=== PATIENT | female | born 1965 | race Caucasian/White ===

== ENCOUNTER 2019-06-28 09:39 | Emergency (ER) | payer OTHER ==
[2019-06-28] MEDS ORDERED: Ibuprofen TAB* 800 MG PO ONE (12:01)
[2019-06-28 12:16] VITALS: BP 125/60
--- NOTE | 2019-06-28 12:21 | ED ---
Upper Extremity Pain - HPI Summary HPI Summary: Patient is a 54 y/o F presenting to [facility] with complaints of right hand and right knee pain secondary to slipping and falling in [facility] parking [place]. The patient is an employee at [employer] [facility] [employer]. She notes Hx of two tendons tearing at her right hand. Left knee surgery is also reported. Patient endorses tobacco and alcohol usage but denies substance usage. No FMHx noted. NKDA reported. Home medications and allergies are reviewed. - History of Current Complaint Chief Complaint: EDExtremityLower Stated Complaint: FALL ARM INJURY Time Seen by Provider: 06/28/19 10:26 Hx Obtained From: Patient Mechanism Of Injury: Fall From A Standing Position Onset/Duration: Still Present Timing: Constant Pain Location: Hand - right Associated Signs & Symptoms: Positive: Other - right knee pain - Allergies/Home Medications Allergies/Adverse Reactions: Allergies Allergy/AdvReac Type Severity Reaction Status Date / Time No Known Allergies Allergy Verified 06/28/19 09:41 PMH/Surg Hx/FS Hx/Imm Hx Musculoskeletal History: Reports: Other Musculoskeletal History - tearing of right hand tendon Sensory History: Denies: Hx Legally Blind, Hx Deafness Opthamlomology History: Denies: Hx Legally Blind EENT History: Denies: Hx Deafness - Surgical History Surgery Procedure, Year, and Place: left knee surgery Infectious Disease History: No Infectious Disease History: Denies: Traveled Outside the [place] in Last 30 Days - Family History Known Family History: Negative: Diabetes - Social History Alcohol Use: Occasionally Substance Use Type: Reports: None Smoking Status (MU): Never Smoked Tobacco Review of Systems Negative: Fever - on vitals, temp is 98.2 F Musculoskeletal: Other - positive - fall, right hand pain, right knee pain All Other Systems Reviewed And Are Negative: Yes Physical Exam - Summary Physical Exam Summary: VITAL SIGNS: Reviewed. GENERAL: Patient is a well-developed and nourished female who is lying comfortable in the stretcher. Patient is not in any acute respiratory distress. HEAD AND FACE: No signs of trauma. No ecchymosis, hematomas or skull depressions. No sinus tenderness. EYES: PERRLA, EOMI x 2, No injected conjunctiva, no nystagmus. EARS: Hearing grossly intact. Ear canals and tympanic membranes are within normal limits. MOUTH: Oropharynx within normal limits. NECK: Supple, trachea is midline, no adenopathy, no JVD, no carotid bruit, no c- spine tenderness, neck with full ROM. CHEST: Symmetric, no tenderness at palpation. LUNGS: Clear to auscultation bilaterally. No wheezing or crackles. CVS: Regular rate and rhythm, S1 and S2 present, no murmurs or gallops appreciated. ABDOMEN: Soft, non-tender. No signs of distention. No rebound, no guarding, and no masses palpated. Bowel sounds are normal. EXTREMITIES: Tenderness of ventral aspect of the right hand, right knee has hematoma on top of patella that is tender, FROM, good cap refill and pulses. NEURO: Alert and oriented x 3. No acute neurological deficits. Speech is normal and follows commands. SKIN: Dry and warm. Triage Information Reviewed: Yes Vital Signs On Initial Exam: Initial Vitals Temp Pulse Resp BP Pulse Ox 98.2 F 92 16 129/56 98 06/28/19 09:41 06/28/19 09:41 06/28/19 09:41 06/28/19 09:41 06/28/19 09:41 Vital Signs Reviewed: Yes Procedures - Sedation Patient Received Moderate/Deep Sedation with Procedure: No Diagnostics - Vital Signs Vital Signs Temp Pulse Resp BP Pulse Ox 06/28/19 09:41 98.2 F 92 16 129/56 98 - Laboratory Lab Statement: Any lab studies that have been ordered have been reviewed, and results considered in the medical decision making process. - Radiology RIGHT KNEE X-RAY Radiology Interpretation Completed By: Radiologist Summary of Radiographic Findings: RIGHT KNEE IMPRESSION: NO FRACTURE IDENTIFIED. PROBABLE FABELLA THE POSTERIOR SOFT TISSUES. CORRELATE WITH POINT TENDERNESS. THIS REPORT WAS REVIEWED BY ED PHYSICIAN. RIGHT WRIST X-RAY Radiology Interpretation Completed By: Radiologist Summary of Radiographic Findings: RIGHT WRIST IMPRESSION: NO ACUTE OSSEOUS INJURY. IF SYMPTOMS PERSIST, RECOMMEND REPEAT IMAGING. THIS REPORT WAS REVIEWED BY ED PHYSICIAN. RIGHT HAND X-RAY Radiology Interpretation Completed By: Radiologist Summary of Radiographic Findings: RIGHT HAND IMPRESSION: NO ACUTE OSSEOUS INJURY. IF SYMPTOMS PERSIST, RECOMMEND REPEAT IMAGING. THIS REPORT WAS REVIEWED BY ED PHYSICIAN. Course/Dx - Course Assessment/Plan: Patient is a 54 y/o F presenting to [facility] with complaints of right hand and right knee pain secondary to slipping and falling in [facility] [place]. The patient is an employee at [employer] [place]. She notes Hx of two tendons tearing at her right hand. Left knee surgery is also reported. Patient endorses tobacco and alcohol usage but denies substance usage. No FMHx noted. NKDA reported. Home medications and allergies are reviewed. X-rays of the right wrist, right hand, right knee negative for acute fracture dislocation. Therefore the patient was given ibuprofen and she was placed in a wrist splint. As per patient request, patient will be discharged home with follow-up with primary care physician. The patient is ambulating out of the ER. The patient is hemodynamically stable alert oriented 3. - Diagnoses Differential Diagnosis/HQI/PQRI: Positive: Bursitis, Contusion, Fracture (Closed ), Strain, Sprain Provider Diagnoses: Right wrist pain, Right knee pain, Fall Discharge ED - Sign-Out/Discharge Documenting (check all that apply): Patient Departure - DISCHARGE - Discharge Plan Condition: Stable Disposition: HOME Patient Education Materials: Wrist Injury (ED), Swollen Knee Joint (ED), Arthralgia (ED) Referrals: [facility] PHYSICIAN REFERRAL [Outside] Additional Instructions: Take ibuprofen for pain. Apply ice as needed Follow with the primary care physician to 3 days. - Billing Disposition and Condition Condition: STABLE Disposition: Home - Attestation Statements Document Initiated by Jermaineibe: Yes Documenting Scribe: JOSÉ MIGUEL MCWILLIAMS Provider For Whom Jesus is Documenting (Include Credential): ZULEYKA TERESA MD Scribe Attestation: JOSÉ MIGUEL Haynes, scribed for ZULEYKA TERESA MD on 06/28/19 at [id number]. Scribe Documentation Reviewed: Yes Provider Attestation: The documentation as recorded by the JOSÉ MIGUEL diaz accurately reflects the service I personally performed and the decisions made by ZULEYKA barron MD Status of Scribe Document: Viewed
== END 2019-06-28 12:14 | disposition home or self-care (01) ==
LOC: ED 09:39
DX: M25.531 Pain in right wrist (principal); M25.561 Pain in right knee; W01.0XXA Fall on same level from slipping, tripping and stumbling without subsequent striking against object, initial encounter; Y92.481 Parking lot as the place of occurrence of the external cause
CPT/HCPCS: 99282; A9270-GY